=== PATIENT | male | born 1995 | race Caucasian/White ===

== ENCOUNTER 2022-03-21 14:53 | Emergency (ER) | payer SELFPAY | END 2022-03-21 18:11 | disposition home or self-care (01) | LOC: JP.ED 14:53 | DX: K92.0 Hematemesis (principal) | CPT/HCPCS: 36415; 80048; 83605; 84484; 85025; 99283; 99284 ==

== ENCOUNTER 2022-03-24 08:49 | Day surgery (SDC) | payer SELFPAY ==
[~2022-03-24 08:49] MED LIST: Glycopyrrolate 0.2 MG/ML 2 ML SDV IVPUSH ONE; Midazolam 1 MG/ML 2 ML SDV ONE; Propofol 200 MG/20 ML SDV ONE; fentaNYL 100 MCG/2 ML SDV ONE
[2022-03-24] MEDS ORDERED: Dextrose 5%-Lactated Ringers 1,000 ML IV SCH (09:30)
[2022-03-24] MEDS ORDERED: Pantoprazole 40 MG Vial IVPUSH ONE (12:00)
[2022-03-24] MEDS ORDERED: Haloperidol Lactate 5 MG/ML SDV IM ONE (13:36)
[2022-03-24] MEDS ORDERED: Haloperidol Lactate 5 MG/ML SDV IVPUSH ONE (13:42)
== END 2022-03-24 15:00 | disposition home or self-care (01) ==
LOC: JP.SDS 08:49
PROVIDERS: ATTEND Surgery
DX: K22.10 Ulcer of esophagus without bleeding (principal); K44.9 Diaphragmatic hernia without obstruction or gangrene; K29.70 Gastritis, unspecified, without bleeding; K31.A0 Gastric intestinal metaplasia, unspecified; Z98.890 Other specified postprocedural states; Z79.899 Other long term (current) drug therapy
CPT/HCPCS: 43239; 87081; 88305; C9113; J1630; J2250; J2704; J3010; J3490; J7121

== ENCOUNTER 2022-03-27 07:52 | Inpatient (IN) | payer SELFPAY ==
[2022-03-27] MEDS ORDERED: Scopolamine 1.5 MG Transdermal Patch TOP SCH (08:00)
[2022-03-27] MEDS ORDERED: Acetaminophen 500 MG Tab PO ONE (08:00)
[2022-03-27] MEDS ORDERED: Dextrose 5%-Lactated Ringers 1,000 ML IV SCH (08:30)
[2022-03-27] MEDS ORDERED: ceFAZolin 2 GM in Sodium Chloride 0.9% 50 ML IV ONE (09:15)
[2022-03-27] MEDS ORDERED: Ropivacaine 30 ML, dexAMETHasone 8 MG, EPINEPHrine 0.4 MG, Sodium Chloride 0.9% 47.6 ML NERVRT SCH ×4 (09:30)
[2022-03-27] MEDS ORDERED: Ketamine 500 MG/5 ML MDV IV SCH (09:30)
[2022-03-27] MEDS ORDERED: Ketamine 16 MG in Sodium Chloride 0.9% 19.84 ML IV SCH (09:30)
[2022-03-27] MEDS ORDERED: Succinylcholine 200 MG/10 ML MDV ONE (09:49)
[2022-03-27] MEDS ORDERED: Rocuronium 50 MG/5 ML Vial ONE (09:49)
[2022-03-27] MEDS ORDERED: Propofol 200 MG/20 ML SDV ONE (09:49)
[2022-03-27] MEDS ORDERED: Ondansetron 4 MG/2 ML SDV ONE (09:49)
[2022-03-27] MEDS ORDERED: Dexamethasone 4 MG/ML SDV ONE (09:49)
[2022-03-27] MEDS ORDERED: Neostigmine Methylsulfate 1 MG/ML 5 ML Syringe ONE (09:49)
[2022-03-27] MEDS ORDERED: fentaNYL 250 MCG/5 ML SDV ONE ×2 (09:49→11:27)
[2022-03-27] MEDS ORDERED: Glycopyrrolate 0.2 MG/ML 5 ML MDV ONE (09:49)
[2022-03-27] MEDS ORDERED: Lactated Ringers 1,000 ML ONE (10:52)
[2022-03-27] MEDS ORDERED: Metoclopramide 10 MG/2 ML SDV ONE (11:16)
[2022-03-27] MEDS ORDERED: HYDROmorphone 1 MG/ML Syringe IV PRN (13:50)
[2022-03-27] MEDS ORDERED: HYDROmorphone 0.5 MG/0.5 ML Syringe IVPUSH PRN (13:50)
[2022-03-27] MEDS ORDERED: HYDROmorphone 2 MG Tab PO PRN (13:51)
[2022-03-27] MEDS ORDERED: Ondansetron 4 MG/2 ML SDV IVPUSH PRN (14:15)
[2022-03-27] MEDS: Acetaminophen 500 MG Tab PO SCH ×2 (14:49→20:01)
[2022-03-27] MEDS: Pantoprazole 40 MG Vial IV SCH (14:50)
[2022-03-27] MEDS: Metoclopramide 10 MG/2 ML SDV IVPUSH SCH ×2 (14:52→20:03)
[2022-03-27] MEDS: Ibuprofen 600 MG Tab PO SCH ×2 (18:48→23:22)
[2022-03-27] MEDS: Dextrose 5%-Lactated Ringers 1,000 ML IV SCH (19:22)
[2022-03-28] MEDS: Dextrose 5%-Lactated Ringers 1,000 ML IV SCH (00:23)
[2022-03-28] MEDS: Metoclopramide 10 MG/2 ML SDV IVPUSH SCH (02:49)
[2022-03-28] MEDS: Acetaminophen 500 MG Tab PO SCH ×4 (02:49→20:25)
[2022-03-28] MEDS: Ibuprofen 600 MG Tab PO SCH ×4 (06:02→23:27)
[2022-03-28] MEDS ORDERED: Dextrose 5%-Lactated Ringers 1,000 ML IV SCH (07:30)
[2022-03-28] MEDS: Pantoprazole 40 MG Vial IV SCH (08:02)
[2022-03-28] MEDS: Metoclopramide 10 MG Tab PO SCH ×3 (08:12→20:26)
[2022-03-29] MEDS: Metoclopramide 10 MG Tab PO SCH ×2 (02:58→09:18)
[2022-03-29] MEDS: Acetaminophen 500 MG Tab PO SCH ×2 (02:58→09:16)
[2022-03-29] MEDS: Ibuprofen 600 MG Tab PO SCH ×2 (06:00→12:16)
[2022-03-29] MEDS ORDERED: Scopolamine 1.5 MG Transdermal Patch TOP ONE (09:32)
== END 2022-03-29 12:30 | disposition home or self-care (01) | DRG 328 ==
LOC: JP.SDSSCHI 07:52 → JP.MS 12:05
PROVIDERS: ADMIT Surgery; ATTEND Surgery
PROC: 0DV44ZZ Restriction of Esophagogastric Junction, Percutaneous Endoscopic Approach (ICD-10-PCS; principal; 2022-03-27)
PROC: 0BUT4JZ Supplement Diaphragm with Synthetic Substitute, Percutaneous Endoscopic Approach (ICD-10-PCS; 2022-03-27)
PROC: 0JB63ZZ Excision of Chest Subcutaneous Tissue and Fascia, Percutaneous Approach (ICD-10-PCS; 2022-03-27)
DX: K44.9 Diaphragmatic hernia without obstruction or gangrene (principal); R06.6 Hiccough; D17.4 Benign lipomatous neoplasm of intrathoracic organs; K21.9 Gastro-esophageal reflux disease without esophagitis; Z98.890 Other specified postprocedural states; Z20.822 Contact with and (suspected) exposure to COVID-19
CPT/HCPCS: 88304; A9270-GY; C1713; C1781; C9113; J0171; J0330; J0690; J1100; J1170; J2405; J2704; J2710; J2765; J2795; J3010; J3490; J7120; J7121; U0002